=== PATIENT | female | born 1995 | race Hispanic/Latino ===

== ENCOUNTER → 2017-07-27 10:39 | Observation (INO) ==
[2017-07-26] MEDS: HYDROmorphone 2 MG/1 ML IVP PRN ×3 (01:13→09:33)
[2017-07-26] MEDS: KETOROLAC 15 MG/1 ML VIAL IVP PRN ×4 (01:18→19:10)
[2017-07-26] MEDS: CefOXitin Inj 2 GM in Sodium Chloride 0.9% 100 ML IV SCH ×5 (01:21→19:13)
[2017-07-26] MEDS: 1/2NS + 20mEq KCL 1,000 ML PRIMARY IV SCH ×4 (01:22→21:20)
[2017-07-26] MEDS: oxyCODONE-ACETAMINOPHEN 5-325 TAB PO PRN ×3 (04:25→12:52)
[2017-07-26 05:26] LABS: BASOPHILS # (AUTO) 0.02 10*3/UL; BASOPHILS % (AUTO) 0.3 % (0-1); EOSINOPHILS # (AUTO) 0.33 10*3/UL; EOSINOPHILS % (AUTO) 5.6 % (0-8); Hematocrit [HCT] 34.8 % (37.0-47.0); Hemoglobin [HGB] 11.3 g/dL (12.0-16.0); LYMPHOCYTES # (AUTO) 2.44 10*3/uL; MEAN CORPUSCULAR HEMOGLOBIN 26.8 PG (27-31); MEAN CORPUSCULAR HGB CONC 32.5 g/dL (33-37); MEAN CORPUSCULAR VOLUME 82.7 FL (81-99); MEAN PLATELET VOLUME 11.7 FL (7.4-12.2); MONOCYTES # (AUTO) 0.67 10*3/UL (0.3-0.8); MONOCYTES % (AUTO) 11.4 % (5-15); NEUTROPHILS # (AUTO) 2.41 10*3/UL; PLATELET MORPHOLOGY COMMENT NORMAL MORPHOLOGY (NORM); RBC MORPHOLOGY COMMENT NORMAL MORPHOLOGY (NORM); RED BLOOD COUNT 4.21 10^6/uL (4.20-5.40); WBC MORPHOLOGY COMMENT NORMAL MORPHOLOGY (NORM)
[2017-07-26 05:31] LABS: BLOOD UREA NITROGEN 12 mg/dL (7-22); BUN/CREATININE RATIO 17.14 (6-20); SERUM ALBUMIN 3.5 g/dL (3.5-4.8)
[2017-07-26] MEDS: NICOTINE 14 MG /DAY PATCH TRANSDERM SCH (10:40)
[2017-07-26] MEDS: Pantoprazole Inj 40 MG in Normal Saline Flush 10 ML IVP SCH (10:40)
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
--- NOTE | 2017-07-26 14:54 | DI ---
CT Abdomen/Pelvis W Contrast,07/26/2017 12:42 PM: Clinical History: Abdominal and pelvic pain. Previous Exam: None at this facility. Findings: Multiple helically acquired CT images are obtained through the abdomen and pelvis following intraveno us administration of 70 cc of ICU 300, and demonstrate moderate dried stool throughout colon. The liver is unremarkable. There is density layering within the gallbladder. The spleen is unremarkable. The kidneys, pancreas and adrenals are grossly normal. There is no mesenteric or retroperitoneal lymphadenopathy. There is a trace amount of free fluid with in the deep pelvis. Uterus and ovaries are unremarkable. Lumbar spine is unremarkable. Impression: Large amount of dried stool throughout the colon.
[2017-07-26] MEDS: BISACODYL 10 MG SUPPOSITORY RECTAL SCH (18:50)
[2017-07-26] MEDS: DOCUSATE 100 MG CAPSULE PO SCH (22:00)
[2017-07-27] MEDS: CefOXitin Inj 2 GM in Sodium Chloride 0.9% 100 ML IV SCH ×2 (02:40→08:49)
[2017-07-27 04:27] LABS: BASOPHILS # (AUTO) 0.01 10*3/UL; BASOPHILS % (AUTO) 0.2 % (0-1); EOSINOPHILS # (AUTO) 0.32 10*3/UL; EOSINOPHILS % (AUTO) 6.4 % (0-8); Hematocrit [HCT] 36.7 % (37.0-47.0); Hemoglobin [HGB] 12.1 g/dL (12.0-16.0); LYMPHOCYTES # (AUTO) 1.95 10*3/uL; MEAN CORPUSCULAR HEMOGLOBIN 26.8 PG (27-31); MEAN CORPUSCULAR VOLUME 81.4 FL (81-99); MEAN PLATELET VOLUME 11.6 FL (7.4-12.2); MONOCYTES # (AUTO) 0.52 10*3/UL (0.3-0.8); MONOCYTES % (AUTO) 10.4 % (5-15); NEUTROPHILS # (AUTO) 2.21 10*3/UL; NEUTROPHILS % (AUTO) 44.1 % (50-80); PLATELET MORPHOLOGY COMMENT NORMAL MORPHOLOGY (NORM); RBC MORPHOLOGY COMMENT NORMAL MORPHOLOGY (NORM); RED BLOOD COUNT 4.51 10^6/uL (4.20-5.40); WBC MORPHOLOGY COMMENT NORMAL MORPHOLOGY (NORM)
[2017-07-27 04:45] LABS: BLOOD UREA NITROGEN 10 mg/dL (7-22); BUN/CREATININE RATIO 16.66 (6-20); SERUM ALBUMIN 3.6 g/dL (3.5-4.8)
--- NOTE | 2017-07-27 07:07 | DI ---
US Pelvic Complete (Non OB),07/26/2017 8:00 AM: Clinical History: Pelvic pain Previous Exam: None at this facility. Findings: Multiple transabdominal grayscale and color Doppler sonographic images are obtained through the pelvi s, and demonstrate a normal-appearing uterus measuring 8.2 x 4.5 x 2.7 cm with an endometrial stripe measuring 4 mm. The right ovary measures 3.4 x 2.6 x 1.8 cm with normal Doppler flow. The left ovary measures 3.6 x 2.5 x 1.8 cm also with normal Doppler flow. There is no free fluid. The overlying urinary bladder is unremarkable. There is no free fluid. Impression: Normal pelvic ultrasound.
--- NOTE | 2017-07-27 08:45 | PDOC(PROG) ---
Date and Time of Service: 07/27/17 @ 0820 Interval History: Pt is up and around in the room this morning--has folded all of the blankets in the room and made her bed. Quite active, giddy, very animated. States that she had a great noc, no nausea, no pain, just wants to go home. Ate a regular breakfast and hot chocolate with no issues. Objective : Data - Labs CBC and BMP: 07/27/17 04:09 07/27/17 04:09 Objective : Exam - General General Appearance: No Acute Distress, Cooperative (giddy) - Head Head Exam: Normal Inspection - Neck Neck Exam: Normal Inspection - Respiratory Respiratory Exam: Clear to Auscultation - Bilaterally, Breathing Non Labored - Cardiovascular Cardiovascular Exam: RRR, No Murmur - GI/Abdominal GI/Abdominal Exam: Normal Bowel Sounds, Non Tender, Non Distended, Soft - Neurological Neurological Exam: Alert, Oriented x 3 - Psychiatric Psychiatric Exam: Normal Affect, Normal Mood - Integumentary Integumentary Exam: Normal Color, Warm, Dry Assessment and Plan - Patient Problems (1) Pelvic inflammatory disease (PID) Current Visit: Yes Status: Acute Code(s): N73.9 - Female pelvic inflammatory disease, unspecified (2) Constipation Current Visit: Yes Status: Acute Code(s): K59.00 - Constipation, unspecified Qualifiers: Constipation type: unspecified constipation type Qualified Code(s): K59.00 - Constipation, unspecified - Assessment / Plan Additional Assessment/Plan Details: -feeling much better today. Will d/c home with 14 day course of doxycycline ( was supposed to be getting this po in the hospital, but the order didn't go through for some reason--spoke with Aylssa in the pharmacy regarding this and she will check into it). -encouraged plenty of fresh fruits and vegetables to help with good bowel function. -encouraged pt to follow up with [facility] clinic in [place] for continued care as she has no reliable transportation to get over to [place] for f/u.
[2017-07-27 08:49] VITALS: BP 113/51; RESP 20; TEMP 98; O2SAT 97
[2017-07-27] MEDS: 1/2NS + 20mEq KCL 1,000 ML PRIMARY IV SCH (08:50)
[2017-07-27] MEDS: DOCUSATE 100 MG CAPSULE PO SCH (09:00)
[2017-07-27] MEDS: BISACODYL 10 MG SUPPOSITORY RECTAL SCH (09:00)
[2017-07-27] MEDS: NICOTINE 14 MG /DAY PATCH TRANSDERM SCH (09:00)
[2017-07-27] MEDS: Pantoprazole Inj 40 MG in Normal Saline Flush 10 ML IVP SCH (09:00)
[~2017-07-27 10:39] MED LIST: HYDROmorphone 2 MG/1 ML IVP PRN; KETOROLAC 15 MG/1 ML VIAL IVP PRN; LIDOCAINE W/ SODIUM BICARB 0.5 ML SYR SUBD PRN; MAGNESIUM CITRATE 296 ML SOLUTION PO ONE; NORMAL SALINE 10 ML SYRINGE FLUSH IVP PRN; ONDANSETRON 4 MG/2 ML VIAL IVP PRN; Patch Removal PATCH TRANSDERM SCH; oxyCODONE-ACETAMINOPHEN 5-325 TAB PO PRN
== END | disposition home or self-care (01) ==
LOC: MED/SURG
PROVIDERS: ADMIT Family Medicine; ATTEND Family Medicine